=== PATIENT | male | born 1990 | race American Indian/Alaskan Native ===

== ENCOUNTER 2020-01-03 10:00 | Emergency (ER) | payer BC ==
--- NOTE | 2020-01-03 10:32 | Event Note ---
ED Screening Note Date of service: 01/03/20 Time: 10:27 ED Screening Note: 29-year-old male patient presents with complaints of fever, chills, body aches, and cough ongoing since Monday Patient states 2 of his friends have recently tested positive for COVID He also admits to mild shortness of breath He denies any diarrhea or vomiting or abdominal pain This initial assessment/diagnostic orders/clinical plan/treatment(s) is/are subject to change based on patients health status, clinical progression and re- assessment by fellow clinical providers in the ED. Further treatment and workup at subsequent clinical providers discretion. Patient/guardian urged not to elope from the ED as their condition may be serious if not clinically assessed and managed. Initial orders include: Chest x-ray
--- NOTE | 2020-01-03 11:56 | XRay Report ---
CHEST 2 VIEWS, 01/03/2020 11:40 AM INDICATION: Cough. Fever. COMPARISON: None FINDINGS: Support devices: None. Heart: The cardiac silhouette is normal in size. Lungs/pleura: The lungs are clear of focal airspace disease or significant pleural effusion. Additional findings: No significant acute abnormality. IMPRESSION: 1. No evidence of acute cardiopulmonary process. Signer Name: Clara Soliz MD Signed: 01/03/2020 11:51 AM Workstation Name: [id number]
--- NOTE | 2020-01-03 12:48 | Emergency Department Report ---
Minor Respiratory - HPI Chief Complaint: Upper Respiratory Infection Stated Complaint: C/FEVER AND CHILLS/HEADACHE Time Seen by Provider: 01/03/20 12:07 Minor Respiratory: Yes Cough, No Rhinorrhea, No Sore Throat, No Able to Tolerate Fluids, No Ear Pain, No Sick Contacts, No Hemoptysis, No Chest Pain, No Shortness of Breath, No Fever Other History: This is a 29-year-old male who presents the ED complaining of body aches and headache for the past 3 days. Patient states that he was in [facility] visiting friends. And he returned to [place] on Monday and symptoms started Monday. ED Review of Systems ROS: Stated complaint: C/FEVER AND CHILLS/HEADACHE Other details as noted in HPI Comment: All other systems reviewed and negative ED Past Medical Hx - Past Medical History Previous Medical History?: Yes Hx Asthma: Yes - Surgical History Past Surgical History?: No - Social History Smoking Status: Never Smoker Substance Use Type: Alcohol, Marijuana - Medications Home Medications: Home Medications Medication Instructions Recorded Confirmed Last Taken Type Azithromycin [Zithromax TAB] 500 mg PO QDAY #7 tablet 01/03/20 Unknown Rx Minor Respiratory Exam - Exam General: Vital signs noted. No distress. Alert and acting appropriately. HEENT: Yes Moist Mucous Membranes, No Pharyngeal Erythema, No Pharyngeal Exudates, No Rhinorrhea, No Conjuctival Injection, No Frontal Tenderness, No Maxillary Tenderness Ear: Neither TM Bulge, Neither TM Erythema, Neither EAC Pain, Neither EAC Discharge Neck: Yes Supple, No Adenopathy Lungs: Yes Good Air Exchange, No Wheezes, No Ronchi, No Stridor, No Cough, No Labored Respirations, No Retractions, No Use of Accessory Muscles, No Other Abnormal Lung Sounds Heart: Yes Regular, No Murmur Abdomen: Yes Normal Bowel Sounds, No Tenderness, No Peritoneal Signs Skin: No Rash, No Edema Neurologic: Alert and oriented, no deficits. Musculoskeletal: Unremarkable. ED Course Vital Signs 01/03/20 10:22 Temperature 98.2 F Pulse Rate 54 L Respiratory 18 Rate Blood Pressure 127/78 [Left] O2 Sat by Pulse 99 Oximetry ED Medical Decision Making - Radiology Data Radiology results: report reviewed, image reviewed Fluoro Time In Minutes: CHEST 2 VIEWS, 01/03/2020 11:40 AM INDICATION: Cough. Fever. COMPARISON: None FINDINGS: Support devices: None. Heart: The cardiac silhouette is normal in size. Lungs/pleura: The lungs are clear of focal airspace disease or significant pleural effusion. Additional findings: No significant acute abnormality. IMPRESSION: 1. No evidence of acute cardiopulmonary process. Signer Name: Clara Soliz MD Signed: 01/03/2020 11:51 AM Workstation Name: [id number] Transcribed By: EB Dictated By: Clara Soliz MD Electronically Authenticated By: Clara Soliz MD Signed Date/Time: 01/03/20 1151 - Medical Decision Making 29-year-old male presents with upper respiratory symptoms Fever resolved no fever during the ED stay. Discussed with patient symptomatic relief with [id number] medications. Discussed with patient COVID-19 testing is appropriate and mandatory and should be done as soon as possible. Discussed with patient for 14-day quarantine if test is positive. Discussed worsening of symptoms patient should return to ED immediately. Patient oxygen saturation stayed at 98% on room air during exertion and after exertion. Discussed continue Tylenol as needed for fever and pain. Discussed increase fluids and diet intake. Discussed rest much needed. Discussed daily vitamin C for immune booster. Discussed follow-up with [facility] physician in 3-5 days. Patient verbally states she understands and will comply the following instructions and follow-up Vital signs stable. Patient is in no acute distress Critical care attestation.: If time is entered above; I have spent that time in minutes in the direct care of this critically ill patient, excluding procedure time. ED Disposition Clinical Impression: Upper respiratory infection Disposition: DC-01 TO HOME OR SELFCARE Is pt being admited?: No Does the pt Need Aspirin: No Condition: Stable Instructions: Upper Respiratory Infection (ED), Viral Syndrome (ED) Additional Instructions: Make sure to follow up with the primary care physician as discussed. Follow-up with primary care provider for chlamydia testing soon as you can. And if positive quarantine for the next 14 days If you have any worsening symptoms or develop new symptoms please return to ED immediately. Prescriptions: Azithromycin [Zithromax TAB] 500 mg PO QDAY #7 tablet Referrals: PRIMARY CAREMD [Primary Care Provider] - 3-5 Days [facility] [Outside] - 3-5 Days [facility] [Outside] - 3-5 Days [facility] [Provider Group] - 3-5 Days Forms: Work/School Release Form(ED) Time of Disposition: 12:58
[2020-01-03 15:23] VITALS: BP 134/86
== END 2020-01-03 13:42 | disposition home or self-care (01) ==
LOC: ED 10:00
DX: J06.9 Acute upper respiratory infection, unspecified (principal); J45.909 Unspecified asthma, uncomplicated; Z79.2 Long term (current) use of antibiotics; F12.10 Cannabis abuse, uncomplicated
CPT/HCPCS: 71046; 99282; 99283